=== PATIENT | male | born 1980 | race Caucasian/White ===

== ENCOUNTER → 2016-06-08 | Outpatient (CLI) | payer BC | END | disposition home or self-care (01) | LOC: C.RDSM 15:15 | PROVIDERS: ATTEND Family Medicine | DX: M79.604 Pain in right leg (principal) ==

== ENCOUNTER → 2016-07-27 | Outpatient (CLI) | payer BC ==
--- NOTE | 2016-07-27 09:53 | DIAGNOSTIC IMAGING REPORT ---
RIGHT FOREARM 2 VIEWS HISTORY: PAIN IN JOINT INVOLVING RT FOREARM Right COMPARISON: None. FINDINGS: There is no fracture or dislocation. Soft tissues are unremarkable. No radiopaque foreign bodies. No elbow effusion. IMPRESSION: No fractures. Electronically signed by: Mat Valles M.D. 07/27/2016 9:51 AM Dictated Date/Time: 07/27/2016 9:49 AM
== END | disposition home or self-care (01) ==
LOC: C.RAD1850 09:36
PROVIDERS: ATTEND Nurse Practitioner Family
DX: M25.531 Pain in right wrist (principal)

== ENCOUNTER → 2017-04-27 | Outpatient (CLI) | payer BC ==
--- NOTE | 2017-04-27 12:24 | DIAGNOSTIC IMAGING REPORT ---
RIGHT SHOULDER 3 VIEWS HISTORY: RIGHT SHOULDER PAIN COMPARISON: None. FINDINGS: There is no fracture or dislocation. Soft tissues are unremarkable. The right clavicle is intact. IMPRESSION: Unremarkable right shoulder. Electronically signed by: Mat Valles M.D. 04/27/2017 12:23 PM Dictated Date/Time: 04/27/2017 12:22 PM
== END | disposition home or self-care (01) ==
LOC: C.RDSM 12:31
PROVIDERS: ATTEND Family Medicine
DX: M25.511 Pain in right shoulder (principal)

== ENCOUNTER → 2017-05-06 | Outpatient (CLI) | payer BC ==
[~2017-05-06] MED LIST: GADAVIST IV PRN
--- NOTE | 2017-05-06 14:12 | DIAGNOSTIC IMAGING REPORT ---
R INJECTION SHOULDER PRE MRI FLUOROSCOPY TIME: 16 seconds HISTORY: Shoulder pain. RIGHT SHOULDER ARTHROGRAM PRE MRI PROCEDURE: After obtaining written informed consent, the patient was placed supine on the fluoroscopy table. A suitable site for needle insertion was marked using fluoroscopic guidance. The right shoulder was prepped and draped in the usual sterile fashion. 1% lidocaine was used for skin, subcutaneous and deep soft tissue anesthesia. Under intermittent fluoroscopic guidance, a 22 gauge 2.5 inch spinal needle was inserted into the left glenohumeral joint. A total of 14 cc of one-to-one mixture of dilute Magnevist (0.1 cc in 10 cc saline) and Optiray 300 were injected. The needle was then removed. There were no apparent complications. The patient was transported to MR for further imaging. IMPRESSION: Fluoroscopic-guided right shoulder arthrogram without immediate complication. Total injected volume was 14 cc. MR portion of the examination will be dictated separately. The above report was generated using voice recognition software. It may contain grammatical, syntax or spelling errors. Electronically signed by: Sathya Scott M.D. 05/06/2017 2:11 PM Dictated Date/Time: 05/06/2017 2:11 PM
--- NOTE | 2017-05-06 14:28 | DIAGNOSTIC IMAGING REPORT ---
R UPPER EXTREMITY JOINT W/ CLINICAL HISTORY: RIGHT SHOULDER PAIN pain TECHNIQUE: Multiaxial MRI acquisition post shoulder arthrography COMPARISON STUDY: None FINDINGS: Signal characteristics the osseous structures are considered unremarkable. There is minimal subchondral cystic formation lateral aspect humeral head deep to the supraspinatus tendon insertion. Supraspinatus tendon demonstrates a slight degree of signal heterogeneity. There is a slight degree of surface fibrillation of the superior tendon surface. A significant rotator cuff tear, however is not identified. Infraspinatus and subscapularis tendons are considered unremarkable. The biceps tendon is intact within the bicipital groove. Glenoid labrum is unremarkable in appearance. There is a trace amount of fluid in the subdeltoid bursa suggestive of a low-grade a subdeltoid bursitis. IMPRESSION: 1. Mild supraspinatus tendinopathy. 2. No evidence for rotator cuff tear. 3. Mild subdeltoid bursitis. The above report was generated using voice recognition software. It may contain grammatical, syntax or spelling errors. Electronically signed by: Sathya Scott M.D. 05/06/2017 2:27 PM Dictated Date/Time: 05/06/2017 2:15 PM
== END | disposition home or self-care (01) ==
LOC: C.MRIBC 13:01
PROVIDERS: ATTEND Family Medicine
DX: M25.511 Pain in right shoulder (principal)